=== PATIENT | male | born 1965 | race Asian ===

== ENCOUNTER 2016-08-09 18:23 | Emergency (ER) | payer OTHER ==
[~2016-08-09] VITALS: Ht 170.2 cm; Wt 63.5 kg
[2016-08-09 18:40] VITALS: BP_SYST 150
[2016-08-09 21:24] VITALS: BP_SYST 143
== END 2016-08-09 21:24 | disposition home or self-care (01) ==
LOC: SED 18:32
DX: S62.306A Unspecified fracture of fifth metacarpal bone, right hand, initial encounter for closed fracture (principal); I10 Essential (primary) hypertension; W22.8XXA Striking against or struck by other objects, initial encounter; Y93.B3 Activity, free weights; Y92.39 Other specified sports and athletic area as the place of occurrence of the external cause; Y99.8 Other external cause status
CPT/HCPCS: 99284

== ENCOUNTER 2022-06-27 19:46 | Inpatient (IN) | payer OTHER ==
[~2022-06-27] VITALS: Ht 170.2 cm; Wt 68.0 kg
[2022-06-27 19:48] VITALS: BP_SYST 175
--- NOTE | 2022-06-27 19:53 | NUR ---
Patient triaged and placed in waiting room. VSS and patient appears in no acute distress at this time. Accompanied by SELF, awaiting available bed, and MD notified of need for MSE.
[2022-06-27] MEDS ORDERED: TAMSULOSIN HCL 0.4 MG CAP PO ONE (21:30)
[2022-06-27] MEDS ORDERED: KETOROLAC TROMETHAMINE 15 MG VIAL IM ONE (21:30)
[2022-06-27 21:41] LABS: BILIRUBIN,URINE NEGATIVE (NEGATIVE); BLOOD, URINE 2+ (NEGATIVE); CLARITY/URINE CLEAR (CLEAR); COLOR,URINE YELLOW (YELLOW); GLUCOSE,URINE NEGATIVE (NEGATIVE); KETONES,URINE NEGATIVE (NEGATIVE); LEUKOCYTE ESTERASE ,URINE NEGATIVE (NEGATIVE); NITRITE, URINE NEGATIVE (NEGATIVE); PH,URINE 5.5 (5.0-8.0); PROTEIN URINE NEGATIVE (NEGATIVE); UROBILINOGEN,URINE 0.2 (0.2-1.0)
[2022-06-27 22:05] LABS: BASOPHILS # (AUTO) 0.1 K/uL (0.0-0.2); BASOPHILS % (AUTO) 0.9 % (0.0-2.0); EOSINOPHILS # (AUTO) 0.1 K/uL (0.0-0.4); EOSINOPHILS % (AUTO) 0.9 % (0.0-4.0); HEMOGLOBIN 13.6 g/dL (14.0-18.0); LYMPHOCYTES # (AUTO) 1.6 K/uL (1.0-5.5); LYMPHOCYTES % (AUTO) 17.2 % (20.5-51.5); MEAN CORPUSCULAR HEMOGLOBIN 31 pg (27-31); MEAN CORPUSCULAR HGB CONC 33 % (32-36); MEAN CORPUSCULAR VOLUME 92 fL (79.0-98.0); MONOCYTES # (AUTO) 0.9 K/uL (0.0-1.0); MONOCYTES % (AUTO) 9.5 % (1.7-9.3); NEUTROPHILS # (AUTO) 6.7 K/uL (1.8-7.7); NEUTROPHILS % (AUTO) 71.5 % (40.0-70.0); PLATELET COUNT (AUTO) 212 K/uL (130-430); RED BLOOD CELL COUNT(AUTO) 4.48 MIL/uL (4.2-6.2); RED CELL DISTRIBUTION WIDTH 12.4 % (9.0-15.0); WHITE BLOOD COUNT (AUTO) 9.4 K/uL (4.8-10.8)
[2022-06-27 22:24] LABS: CALCIUM 9.4 mg/dL (8.4-11.0); CREATININE 1.77 mg/dL (0.55-1.30)
[2022-06-27 22:26] LABS: BACTERIA,URINE None Seen /HPF (None Seen); MUCUS,URINE 1+ /LPF (None Seen)
[2022-06-27 22:28] LABS: TOTAL BILIRUBIN 1.6 mg/dL (0.0-1.0)
--- NOTE | 2022-06-27 23:08 | NUR ---
Patient to [facility] for evaluation. Side rails up. Report given to Nhung FOX.
--- NOTE | 2022-06-27 23:10 | NUR ---
Patient presents to ED from home with c/o constipation and right flank pain x3days. Patient reports pain 8/10 at this time. Patient A/Ox4, VSS, ambulatory, resp even and unlabored. Nad noted at this time. ER MD Cardenas made aware.
--- NOTE | 2022-06-27 23:15 | NUR ---
# 20 gauge angiocath placed to right AC. Use of asceptic technique. Opsite placed over site. Blood return noted. Flushed with 10 cc of normal saline. No evidence of infiltration noted. Patient tolerated well.
--- NOTE | 2022-06-27 23:20 | NUR ---
Called hotel housekeeper and made aware that Flomax is not available in [facility]. supervisor tree trimming stated she would bring Flomax capsule from floor. ER MD Cardenas and ER Charge nurse made aware.
--- NOTE | 2022-06-27 23:30 | NUR ---
ER MD Cardenas at bedside.
[2022-06-27] MEDS ORDERED: NACL 0.9% 1,000 ML IV ONE (23:45)
[2022-06-27] MEDS ORDERED: KETOROLAC TROMETHAMINE 15 MG VIAL ONE (23:53)
--- NOTE | 2022-06-28 00:45 | NUR ---
Patient resting comfortably in bed with safety precautions in place. Nad noted at this time.
[2022-06-28] MEDS ORDERED: TAMSULOSIN HCL 0.4 MG CAP ONE (00:50)
--- NOTE | 2022-06-28 02:30 | NUR ---
Report given to DOMINIQUE Paulino; assuming care of patient at this time.
[2022-06-28] MEDS ORDERED: MORPHINE 2 MG/ML INJ. SYRINGE IVP PRN ×3 (03:30→07:45)
--- NOTE | 2022-06-28 03:30 | NUR ---
Admit bed requested Patient will be admitted to care of . Admitted to MED SURG unit. Diagnosis ACUTE KIDNEY INJURY Inpatient (Yes or No) YES Observation (Yes or No) NO Orientation concerns or request close to nursing station (Yes or No) NO Covid Status NEGATIVE On vent or bipap NO Isolation requirements NO Needs a sitter NO From Home (Yes or if No enter name of facility) YES Requires Dialysis (Yes or No) NO Med Rec Completed (Yes of No) YES
[2022-06-28] MEDS ORDERED: NACL 0.9% 1,000 ML IV SCH (05:00)
[2022-06-28] MEDS ORDERED: ONDANSETRON HCL 4 MG/2 ML VIAL IVP PRN (07:45)
[2022-06-28] MEDS ORDERED: ACETAMINOPHEN 325 MG TABLET PO PRN ×2 (07:45)
[2022-06-28] MEDS ORDERED: DOCUSATE SODIUM 100 MG CAPSULE PO PRN (07:45)
[2022-06-28] MEDS ORDERED: POTASSIUM CHLORIDE 20 MEQ TAB.PRT.SR PO PRN (07:45)
[2022-06-28] MEDS ORDERED: MUPIROCIN 2% TOPICAL OINTMENT 22 GM NS PRN (07:45)
[2022-06-28] MEDS ORDERED: MAGNESIUM SULFATE 50 ML IV PRN (07:45)
[2022-06-28] MEDS ORDERED: POLY17PO4 PO (08:49)
[2022-06-28] MEDS ORDERED: TAMS-11 PO (08:49)
[2022-06-28] MEDS ORDERED: HYDR-3917 PO (08:50)
[2022-06-28 08:58] VITALS: BP_SYST 152
[2022-06-28 08:58] LABS: BASOPHILS % (AUTO) 0.4 % (0.0-2.0); EOSINOPHILS % (AUTO) 0.1 % (0.0-4.0); HEMATOCRIT 38.7 % (36-54); HEMOGLOBIN 13.1 g/dL (14.0-18.0); LYMPHOCYTES # (AUTO) 0.8 K/uL (1.0-5.5); LYMPHOCYTES % (AUTO) 7.8 % (20.5-51.5); MEAN CORPUSCULAR HEMOGLOBIN 31 pg (27-31); MEAN CORPUSCULAR HGB CONC 34 % (32-36); MEAN CORPUSCULAR VOLUME 91 fL (79.0-98.0); MONOCYTES # (AUTO) 0.8 K/uL (0.0-1.0); MONOCYTES % (AUTO) 7.4 % (1.7-9.3); NEUTROPHILS # (AUTO) 8.9 K/uL (1.8-7.7); NEUTROPHILS % (AUTO) 84.3 % (40.0-70.0); PLATELET COUNT (AUTO) 179 K/uL (130-430); RED BLOOD CELL COUNT(AUTO) 4.25 MIL/uL (4.2-6.2); RED CELL DISTRIBUTION WIDTH 12.4 % (9.0-15.0); WHITE BLOOD COUNT (AUTO) 10.6 K/uL (4.8-10.8)
[2022-06-28] MEDS ORDERED: TAMSULOSIN HCL 0.4 MG CAP PO SCH (09:00)
[2022-06-28 09:16] LABS: CALCIUM 8.3 mg/dL (8.4-11.0); CREATININE 1.41 mg/dL (0.55-1.30)
[2022-06-28 09:24] VITALS: BP_SYST 122
--- NOTE | 2022-06-28 09:24 | NUR ---
Patient given written and verbal discharge instructions and verbalizes understanding. ER MD Estrada discussed with patient the results and treatment provided. Patient in stable condition. ID arm band removed. IV catheter removed intact and dressing applied, no active bleeding. Rx of [place], sent to [facility], patient verbalized understanding. Patient educated on pain management and to follow up with PMD within one week. Pain Scale 0/10. Opportunity for questions provided and answered. Medication side effect fact sheet provided. Patient stable and able to ambulate without assistance. Patient denies dizziness. VS WNL. Patient walked to private transportation to drive himself home.
== END 2022-06-28 15:00 | disposition home or self-care (01) | DRG 694 ==
LOC: SED 19:46 → SMU 06-28 03:25
PROVIDERS: ADMIT Family Medicine; ATTEND Family Medicine
DX: N13.2 Hydronephrosis with renal and ureteral calculous obstruction (principal); K59.00 Constipation, unspecified; N17.0 Acute kidney failure with tubular necrosis; I10 Essential (primary) hypertension; E78.5 Hyperlipidemia, unspecified; E80.6 Other disorders of bilirubin metabolism; Z20.822 Contact with and (suspected) exposure to COVID-19
CPT/HCPCS: 36415; 76376; 80048; 80053; 81000; 83690; 85025; 96361; 96372; 96374; 99285; J1885; J2270